=== PATIENT | female | born 1960 | race Caucasian/White ===

== ENCOUNTER 2018-09-14 13:54 | Emergency (ER) | payer BC ==
[~2018-09-14] VITALS: Ht 154.9 cm; Wt 73.5 kg
[2018-09-14] MEDS ORDERED: SYNTHROID25 MC1 PO (14:26)
[2018-09-14] MEDS ORDERED: CELEBREX 200 M200 M1 PO (14:26)
[2018-09-14] MEDS ORDERED: PHENERGAN 25 MG25 M1 PO (14:26)
[2018-09-14] MEDS ORDERED: NASAL ALLERGY S13 ML (14:26)
[2018-09-14] MEDS ORDERED: KLONOPIN0.5 MG (14:27)
[2018-09-14] MEDS ORDERED: ACETAMINOPHEN-1 EAC1 PO (14:27)
[2018-09-14] MEDS ORDERED: REQUIP0.5 MG PO (14:27)
[2018-09-14] MEDS ORDERED: CHANTIX1 MG PO (14:28)
[2018-09-14] MEDS ORDERED: ONDANSETRON HCL4 M2 PO (14:28)
[2018-09-14 15:26] VITALS: BP 124/73
== END 2018-09-14 15:27 | disposition home or self-care (01) ==
LOC: M.ERS 13:54
DX: S00.83XA Contusion of other part of head, initial encounter (principal); E03.9 Hypothyroidism, unspecified; Z88.1 Allergy status to other antibiotic agents; Z88.2 Allergy status to sulfonamides; Z88.5 Allergy status to narcotic agent; Z88.6 Allergy status to analgesic agent; Z85.118 Personal history of other malignant neoplasm of bronchus and lung; Z98.890 Other specified postprocedural states; W11.XXXA Fall on and from ladder, initial encounter; Y93.89 Activity, other specified; Y92.89 Other specified places as the place of occurrence of the external cause; Y99.8 Other external cause status